=== PATIENT | male | born 1965 | race Caucasian/White ===

== ENCOUNTER 2024-07-26 10:52 | Emergency (ER) | payer BC, SELFPAY ==
[2024-07-26 10:57] VITALS: BP 168/83
--- NOTE | 2024-07-26 11:22 | ED.MUSCINJ ---
HPI-Injury
General
Chief Complaint: Musculo-Skeletal Complaint
Source: patient
Time Seen by Provider: 07/26/24 11:05
History of Present Illness-Injury
Initial Injury comments:
59-year-old male presents complaining of left knee pain starting yesterday. He tripped going up to 3 steps to his deck and hit his left knee directly on the edge of the deck. He complains of pain and swelling to the knee and increasing swelling
down the leg. He is barely able to bear weight. He does have a remote history of a tibial plateau fracture in his leg. No other complaints at this time.
Past History
Past History
ED Past Medical History: Other (Chronic headache)
Social History
Tobacco: Non-smoker
Alcohol: None
Drug: None
Phy Exam
Physical Exam
Physical Exam:
General: Well-appearing male no acute respiratory distress
Musculoskeletal exam: Left knee with large effusion tender anteriorly. Unable to straight leg raise due to pain.
SKin: no laceration, intact.
Injury Course
Orders/Labs/Results
Orders:
Orders
07/26/24 10:54
Knee, Left 4 or More Views [CR Knee - Left 4 Or More View*] Urgent
Comment:
Reason For Exam: pain and swelling after a fall
MDM/Problems Addressed
Differential Diagnosis Includes:
Left knee pain after direct trauma to the knee. Consider fracture versus contusion versus patellar tendon injury
X-rays pending
*Critical Care Note
Total Time (30-74mins, 75-104mins- exclusive of procedures): Not Applicable
Update Note
Update Note:
X-rays negative for acute fracture. Differential still could be occult fracture of the tibial plateau given his tenderness on exam versus patellar tendon injury. Patient unable to straight leg raise however this may be limited by pain. Offered CT
imaging for further detail of the bony structure however he declined he wishes just to follow recs. He was given a knee immobilizer advised to limit weightbearing until seen by orthopedics. Stable for discharge
ED Attending Note
-
Portions of this chart may have been created with voice recognition software.� Occasional wrong word or��sound alike� substitutions may have occurred due to the inherent limitations of voice recognition software.
Discharge Plan
Departure
Patient Disposition: Home (Routine Discharge)
Date of Disposition: 07/26/24
Time of Disposition: 12:42
Patient with high blood pressure during this ER visit?: No
Discharge Problem:
Injury of knee
Instructions: Muscle and Bone Pain (DC)
Prescriptions:
No Action
oxycodone 30 MG tablet
1 - 2 tab PO .Q2-3HPRN PRN (Reason: pain posterior to R eye)
oxycodone [OxyContin] 30 MG tablet extended release 12 hr
30 mg PO BID Qty: 6 0RF
oxycodone 5 MG tablet
5 mg PO Q4HPRN PRN (Reason: wrist pain) Qty: 12 0RF
Referrals:
Joe Loredo DO [Family Provider] -
Kenny Wayne MD [Active] -
Activity Restrictions/Additional Instructions:
Use knee immobilizer at all times when ambulating. Use crutches for support to take some weight off of your left foot while ambulating. Elevate for swelling. Use ibuprofen or Tylenol for pain. Follow-up with orthopedics for further evaluation
Interventions
Interventions:
*Risk Screen - Suicide Last Done: 07/26/24 10:57
*General Assessment Last Done: 07/26/24 10:57
*ED- Fall Risk Assessment Last Done: 07/26/24 10:57
*ED COVID-19 Vaccine History Last Done: 07/26/24 10:57
Discharge Date and Time
Print Language: SERBIAN
== END 2024-07-26 13:41 | disposition home or self-care (01) ==
LOC: EMR 10:52
PROVIDERS: EMERGENCY PHYSICIAN Emergency Medicine; FAMILY PHYSICIAN Family Medicine
DX: M25.562 Pain in left knee (principal); W19.XXXA Unspecified fall, initial encounter
CPT/HCPCS: 99283; 29505; 73564

== ENCOUNTER → 2024-12-02 19:44 | Outpatient (REF) | payer BC, SELFPAY | LOC: MRI 19:44 | PROVIDERS: ATTENDING PHYSICIAN Family Medicine | DX: M25.511 Pain in right shoulder (principal) | CPT/HCPCS: 73221 ==